=== PATIENT | female | born 1985 | race Caucasian/White ===

== ENCOUNTER 2018-08-23 07:27 | Outpatient (CLI) | payer OTHER | END 2018-08-23 07:41 | disposition home or self-care (01) | LOC: SONOGRAMA 07:27 | DX: N60.11 Diffuse cystic mastopathy of right breast (principal) ==

== ENCOUNTER 2018-08-31 08:34 | Outpatient (CLI) | payer OTHER | END 2018-08-31 08:37 | disposition home or self-care (01) | LOC: SONOGRAMA 08:34 | DX: N63.10 Unspecified lump in the right breast, unspecified quadrant (principal) ==

== ENCOUNTER 2018-12-29 07:30 | Inpatient (IN) | payer OTHER ==
[~2018-12-29] VITALS: Ht 152.4 cm; Wt 72.6 kg
[2019-01-10] MEDS ORDERED: PRENATAL TABLE1 EAC1 (08:16)
== END 2019-01-12 09:50 | DRG 807 ==
LOC: LDR 01-10 06:23 → OB/GYN 01-10 07:30
PROVIDERS: ADMIT Obstetrics & Gynecology Maternal & Fetal Medicine
PROC: 10D07Z6 Extraction of Products of Conception, Vacuum, Via Natural or Artificial Opening (ICD-10-PCS; principal; 2019-01-10)
PROC: 0W8NXZZ Division of Female Perineum, External Approach (ICD-10-PCS; 2019-01-10)
PROC: 4A1HXCZ Monitoring of Products of Conception, Cardiac Rate, External Approach (ICD-10-PCS; 2019-01-10)
DX: O66.5 Attempted application of vacuum extractor and forceps (principal); Z37.0 Single live birth; Z3A.40 40 weeks gestation of pregnancy; Z22.330 Carrier of Group B streptococcus

== ENCOUNTER 2019-01-02 13:38 | Outpatient (CLI) | payer OTHER | END 2019-01-02 14:41 | disposition home or self-care (01) | LOC: NST 13:38 | DX: Z34.83 Encounter for supervision of other normal pregnancy, third trimester (principal) ==

== ENCOUNTER 2019-01-08 11:25 | Outpatient (CLI) | payer OTHER | END 2019-01-08 13:08 | disposition home or self-care (01) | LOC: NST 11:25 | DX: Z34.83 Encounter for supervision of other normal pregnancy, third trimester (principal) ==